=== PATIENT | male | born 1990 ===

== ENCOUNTER 2020-01-26 02:48 | Emergency (ER) | payer SELFPAY ==
[2020-01-26] MEDS ORDERED: THIAMINE 200 MG/2 ML INJ ONE (03:11)
[2020-01-26] MEDS ORDERED: MULTIVITAMINS 10 ML VIAL (INJ) IV ONE (03:12)
[2020-01-26] MEDS ORDERED: FOLIC ACID 5 MG/ML VIAL ONE (03:12)
[2020-01-26] MEDS ORDERED: NA CHLORIDE 0.9% 1,000 ML ONE ×2 (03:12→04:09)
[2020-01-26] MEDS ORDERED: TETANUS & DIPHTHERIA TOX,ADULT 0.5 ML VIAL ONE (03:21)
[2020-01-26] MEDS ORDERED: DERMABOND SKIN ADHESIVE TOP ONE (03:25)
[2020-01-26 03:32] LABS: Absolute Lymphocytes (CBC) 3.1 K/uL (0.7-4.9); Basophils % 1.2 % (0-1.3); Hematocrit 42.8 % (39.6-49.0); Lymphocytes % 37.1 % (15.3-44.8); MPV 8.8 fL (7.6-11.3); RBC Red Blood Cell Count 4.45 M/uL (4.33-5.43)
[2020-01-26 03:34] LABS: Protime INR 1.03
[2020-01-26 03:51] LABS: ALT/SGPT 27 U/L (12-78); AST/SGOT 22 U/L (15-37); Albumin 3.7 g/dL (3.4-5.0); Alkaline Phosphatase 94 U/L (45-117); BUN Blood Urea Nitrogen 9 mg/dL (7-18); Bicarbonate 27 mmol/L (21-32); Bilirubin Direct < 0.1 mg/dL (0-0.2); Bilirubin Total 0.2 mg/dL (0.2-1.0); Glucose Level 113 mg/dL (74-106); Potassium 3.6 mmol/L (3.5-5.1); Protein, Total 7.5 g/dL (6.4-8.2); Sodium Level 144 mmol/L (136-145)
[2020-01-26] MEDS ORDERED: NALOXONE HCL 2 MG/2 ML VIAL ONE (03:58)
[2020-01-26 05:12] LABS: Barbiturates NEGATIVE (NEGATIVE); Benzodiazepines NEGATIVE (NEGATIVE); Cocaine NEGATIVE (NEGATIVE); METHAMPHETAM NEGATIVE (NEGATIVE); Methadone NEGATIVE (NEGATIVE); Opiates NEGATIVE (NEGATIVE); Phencyclidine NEGATIVE (NEGATIVE); THC Cannibis NEGATIVE (NEGATIVE)
[2020-01-26 05:21] LABS: Urine Blood NEGATIVE (NEG); Urine Glucose NEGATIVE (NEG); Urine Protein NEGATIVE (NEG)
--- NOTE | 2020-01-26 06:18 | EDPHYS ---
Physician Documentation [facility] Name: Christian Woods Age: 29 yrs Sex: Male : 1990 Arrival Date: 01/26/2020 Time: 02:49 Bed 5 Private MD: ED Physician Gordo Monzon HPI: 01/25 03:10 This 29 yrs old Male presents to ER via EMS with complaints of Altered Mental Status. pkl 03:10 The patient presents with decreased mental status. Onset: The symptoms/episode pkl began/occurred just prior to arrival. Possible causes: drug use, alcohol. Patient found unresponsive on the floor in [facility]. Historical: - Allergies: 02:55 No Known Allergies; sg - Home Meds: 02:55 Unable to obtain [Active]; sg - PMHx: 02:55 Unable to obtain; sg - PSHx: 02:55 Unable to obtain; sg - Immunization history:: Adult Immunizations unknown. - Social history:: Smoking status: Patient reports the use of cigarette tobacco products. ROS: 03:10 Eyes: Negative for injury, pain, redness, and discharge, ENT: Negative for injury, pkl pain, and discharge, Neck: Negative for injury, pain, and swelling, Cardiovascular: Negative for chest pain, palpitations, and edema, Respiratory: Negative for shortness of breath, cough, wheezing, and pleuritic chest pain. 03:10 Abdomen/GI: Positive for vomiting. 03:10 Back: Negative for acute changes. 03:10 : Negative for urinary symptoms. 03:10 MS/extremity: Negative for acute changes. 03:10 Skin: Positive for laceration(s), of the left forehead. 03:10 Neuro: Positive for altered mental status. Exam: 03:10 Eyes: Pupils equal round and reactive to light, extra-ocular motions intact. Lids and pkl lashes normal. Conjunctiva and sclera are non-icteric and not injected. Cornea within normal limits. Periorbital areas with no swelling, redness, or edema. 03:10 Head/face: Noted is a laceration(s), that is superficial, that is linear, 1.5 cm(s), of the left forehead. 03:10 ENT: Exam is negative for acute changes. 03:10 Neck: Exam negative for acute changes. 03:10 Chest/axilla: Exam negative for acute changes. 03:10 Cardiovascular: Rate: normal, Rhythm: regular. 03:10 ECG was reviewed by the Attending Physician. 03:10 Respiratory: the patient does not display signs of respiratory distress, Respirations: normal, Breath sounds: are clear throughout. 03:10 Abdomen/GI: Bowel sounds: normal, Palpation: abdomen is soft and non-tender, in all quadrants. 03:10 Back: Exam negative for acute changes. 03:10 : Exam negative for acute changes. 03:10 Musculoskeletal/extremity: Exam is negative for acute changes, injury. 03:10 Skin: Exam negative for rash. 03:10 Neuro: Orientation: Not oriented to person, place, time, Mentation: responsive to painful stimuli, Motor: moves all fours. Vital Signs: 02:51 BP 111 / 99; Pulse 75; Resp 19; Temp 98.5; Pulse Ox 99% ; rr5 03:45 BP 109 / 76; Pulse 69; Resp 16; Pulse Ox 99% ; rr5 04:30 BP 101 / 68; Pulse 69; Resp 18; Pulse Ox 100% on R/A; mg2 06:41 BP 114 / 70; Pulse 70; Resp 16; Pulse Ox 99% ; rr5 04:30 patient sleeping mg2 Laceration: 03:38 Wound Repair of 1.5cm ( 0.6in ) subcutaneous laceration to left forehead. Minimal pkl bleeding noted.. Distal neuro/vascular/tendon intact. Wound prep: Moderate cleansing by nurse. Skin closed with Wound closed with Dermabond Wound closed with Dermabond using simple sutures and sterile technique. MDM: 02:50 Patient medically screened. pkl 06:07 Data reviewed: vital signs, nurses notes, lab test result(s), EKG, radiologic studies, pkl CT scan, plain films. 06:17 ED course: Patient feeling better. Alert. Ambulatory. pkl 01/25 02:50 Order name: Acetaminophen; Complete Time: 03:56 mg2 01/25 02:50 Order name: Basic Metabolic Panel; Complete Time: 03:56 mg2 01/25 02:50 Order name: CBC with Diff; Complete Time: 03:56 mg2 01/25 02:50 Order name: ETOH Level; Complete Time: 03:56 mg2 01/25 02:50 Order name: Hepatic Function; Complete Time: 03:56 mg2 01/25 02:50 Order name: PT-INR; Complete Time: 03:56 mg2 01/25 02:50 Order name: Ptt, Activated; Complete Time: 03:56 mg2 01/25 02:50 Order name: Salicylate; Complete Time: 03:56 mg2 01/25 02:50 Order name: Urine Drug Screen; Complete Time: 05:30 mg2 01/25 03:03 Order name: CT Head Brain wo Cont pkl 01/25 03:08 Order name: Glucose, Ancillary Testing; Complete Time: 03:22 EDMS 01/25 04:51 Order name: ETOH Level; Complete Time: 05:30 mg2 01/25 04:58 Order name: Urine Dipstick--Ancillary (enter results); Complete Time: 05:30 tt3 01/25 02:50 Order name: EKG; Complete Time: 02:51 mg2 01/25 02:50 Order name: EKG - Nurse/Tech; Complete Time: 02:59 mg2 01/25 02:50 Order name: IV Saline Lock; Complete Time: 02:59 mg2 01/25 02:50 Order name: Labs collected and sent; Complete Time: 02:59 mg2 01/25 02:50 Order name: Urine Dipstick-Ancillary (obtain specimen); Complete Time: 04:58 mg2 01/25 04:55 Order name: Straight Cath - Urine; Complete Time: 04:55 rr5 Administered Medications: 03:05 Not Given (Patient Refused): NARcan 2 mg IVP once pkl 03:06 Drug: Banana Bag - (NS 0.9% 1000 ml, foLIC Acid 1 mg, Thiamine 100 mg, Multivitamin 1 rr5 amp) Route: IV; Rate: calculated rate; Site: right forearm; 05:01 Follow up: Response: No adverse reaction; IV Status: Completed infusion; IV Intake: mg2 1000ml 03:18 Drug: Tetanus-Diphtheria Toxoid Adult 0.5 ml {Supervisor Ticket Sales: [employer]. Exp: rr5 07/16/2022. Lot #: [id number]. } Route: IM; Site: left deltoid; 03:46 Follow up: Response: No adverse reaction rr5 03:50 Drug: NARcan 2 mg Route: IVP; Site: right forearm; rr5 04:30 Follow up: Response: No adverse reaction mg2 04:35 Drug: NS 0.9% 1000 ml Route: IV; Rate: 250 ml/hr; Site: right forearm; rr5 06:38 Follow up: Response: No adverse reaction; IV Status: Order to discontinue infusion; IV rr5 Intake: 500ml Disposition: 01/26/20 06:17 Discharged to Home. Impression: Altered mental status. Ingestion of alcohol. - Condition is Stable. - Medication Reconciliation Form, Thank You Letter, Antibiotic Education, Prescription Opioid Use form. - Follow up: Private Physician; When: 1 - 2 days; Reason: Re-evaluation by your physician. - Problem is new. - Symptoms have improved. Signatures: Dispatcher [employer] EDMS Micky Hilliard, RN RN sg Gordo Monzon MD MD pkl Stephanie Bustos RN RN aa5 Wolfgang Rodriguez RN SUSAN mg2 Alfred Schmitt RN RN rr5 Corrections: (The following items were deleted from the chart) 11:31 06:17 01/26/2020 06:17 Discharged to Home. Impression: Altered mental status. Ingestion aa5 of alcohol. Condition is Stable. Forms are Medication Reconciliation Form, Thank You Letter, Antibiotic Education, Prescription Opioid Use. Follow up: Private Physician; When: 1 - 2 days; Reason: Re-evaluation by your physician. Problem is new. Symptoms have improved. pkl
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
--- NOTE | 2020-01-26 07:00 | EKG ---
Test Date: 2020-01-26 Test Time: 02:56:22 Grain I Farmworker: MG MEASUREMENT RESULTS: Intervals: Rate: 77 WV: 172 QRSD: 90 QT: 370 QTc: 418 [place]: P: 81 WV: 172 QRS: 91 T: 71 INTERPRETIVE STATEMENTS: Normal sinus rhythm Rightward axis Pulmonary disease pattern Abnormal ECG No previous ECG available for comparison Electronically Signed On 01-26-20 07:00:03 CDT by Grant Milligan
--- NOTE | 2020-01-26 18:08 | RAD REPORT ---
EXAM DESCRIPTION: CT - Head Brain Wo Cont - 01/26/2020 6:39 am CLINICAL HISTORY: Altered mental status COMPARISON: None available TECHNIQUE: Axial CT of the head obtained from the skull apex to the skull base without contrast. FINDINGS: No acute intracranial hemorrhage identified. No mass, mass effect, shift of the midline, a bnormal extra-axial fluid collection or CT evidence of acute ischemic change identified. The ventricu lar system is unremarkable. No acute abnormalities of the supratentorial white matter, basal gangli a, cerebellum, or brainstem. The visualized paranasal sinuses and the mastoids are relatively well aerated. No skull fracture id entified. Visualized orbits and globes are unremarkable. IMPRESSION: 1. No acute intracranial abnormality identified. This exam was performed according to our departmental dose-optimization program, which includes autom ated exposure control, adjustment of the mA and/or kV according to patient size and/or use of iterati ve reconstruction technique. Electronically signed by: Prince Olson 01/26/2020 3:55 AM CDT Due to temporary technical issues with the PACS/Fluency reporting system, reports are being signed by the in house radiologist without review as a courtesy to ensure prompt reporting. The interpreting r adiologist is fully responsible for the content of the report.
[2020-01-28 17:10] VITALS: TEMP 98.5
[2020-01-28 17:13] VITALS: BP 114/70; O2SAT 99
== END 2020-01-26 11:31 | disposition home or self-care (01) ==
LOC: ER 02:48
PROC: 0JQ10ZZ Repair Face Subcutaneous Tissue and Fascia, Open Approach (ICD-10-PCS; principal; 2020-01-26)
DX: R41.82 Altered mental status, unspecified (principal); F10.129 Alcohol abuse with intoxication, unspecified; F17.210 Nicotine dependence, cigarettes, uncomplicated; Z23 Encounter for immunization
CPT/HCPCS: 36415; 70450; 80048; 80076; 80307; 80320; 80329; 81003; 82947; 85025; 85610; 85730; 90471; 90714; 93005; 96361; 96365; 96366; 96375; 99291; 99292; J2310; J3411; J7030